=== PATIENT | female | born 1985 | race Caucasian/White ===

== ENCOUNTER 2019-03-30 05:04 | Inpatient (IN) ==
[2019-03-30] MEDS ORDERED: ceFAZolin 2,000 MG in PREMIX 1 EACH IV ONE (05:28)
[2019-03-30] MEDS ORDERED: FAMOTIDINE 20 MG/2 ML VIAL IV PRN (05:28)
[2019-03-30] MEDS ORDERED: CITRIC ACID/SODIUM CITRATE 30 ML UDCUP PO PRN (05:28)
[2019-03-30 05:58] LABS: Basophils % 0.3 % (0.0-0.8); Eosinophils # 0.1 10*3/uL (0.0-0.87); Eosinophils % 0.7 % (0.00-10.9); Hematocrit 30.4 VOL% (35.7-47.0); Hemoglobin 9.1 GM/DL (12.0-16.0); Immature Granulocytes % 0.4 %; Immature Granulocytes Absolute 0.04 #; Lymphocytes # 1.5 10*3/uL (1.4-4.0); Mean Corpuscular HGB Conc 29.9 GM/DL (32-36); Mean Corpuscular Volume 77.7 FL (87-102); Mean Platelet Volume 10.4 FL (9.6-12.0); Neutrophils % 77.6 % (38.7-73.9); Platelet Count 277 T/CUMM (130-400); Red Blood Count 3.91 MC/CUMM (3.8-5.5); Red Cell Distribution Width 14.6 % (9.3-17.3); White Blood Count 9.8 T/CUMM (4-12)
[2019-03-30] MEDS ORDERED: OXYTOCIN/LR 20 UNIT/1,000 ML BAG IV SCH (06:30)
[2019-03-30 06:31] LABS: Albumin 2.5 G/DL (3.4-5.0); Bilirubin,Total 0.4 MG/DL (0.2-1.0); Calcium 8.8 MG/DL (8.5-10.1); Osmolality,Calculated 268.8 MOS/KG (273-304); Total Protein 6.5 G/DL (6.4-8.3)
[2019-03-30] MEDS: LACTATED RINGERS 1,000 ML IV SCH (06:49)
[2019-03-30] MEDS ORDERED: BUPIVACAINE SPINAL 0.75% 2 ML AMP SPINAL ONE (06:49)
[2019-03-30] MEDS ORDERED: BUPIVACAINE 0.5% 50 ML VIAL ONE (06:49)
[2019-03-30] MEDS ORDERED: DEXAMETHASONE 4 MG/1 ML VIAL ONE (07:22)
[2019-03-30] MEDS ORDERED: EPINEPHrine 1 MG/ML VIAL ONE (07:22)
[2019-03-30] MEDS ORDERED: miSOPROStol 200 MCG TABLET ONE (07:23)
[2019-03-30] MEDS ORDERED: METHYLERGONOVINE 0.2 MG/1 ML AMP ONE (07:24)
[2019-03-30] MEDS ORDERED: METHYLENE BLUE 10 ML VIAL IV ONE (08:02)
[2019-03-30 08:05] LABS: Amorphous Crystals,Urine Moderate /HPF (Few); Apearance,Urine CLOUDY (Clear); Bilirubin,Urine Negative (Negative); Blood, Urine Negative (Negative); Glucose,Urine (UA) Negative (Negative); Ketones,Urine 5 mg/dL (Negative); Mucus,Urine Occasional /LPF (Occasional); Nitrite,Urine Negative (Negative); Protein,Urine Negative; Urine Color Yellow (Yellow); Urine Specific Gravity 1.012 (1.001-1.035); Urine Urobilinogen < 2.0 EU/DL (0.2-1.0)
[2019-03-30] MEDS ORDERED: HYDROCORTISONE 2.5% RECTAL CREAM 30 GM TUBE TOP PRN (08:27)
[2019-03-30] MEDS ORDERED: oxyCODONE/ACETAMINOPHEN 5-325 MG TABLET PO PRN (08:27)
[2019-03-30] MEDS ORDERED: BENZOCAINE 20%/MENTHOL 0.5% SPRAY 56 GM CAN TOP PRN (08:27)
[2019-03-30] MEDS ORDERED: ACETAMINOPHEN 325 MG TABLET PO PRN (08:27)
[2019-03-30] MEDS ORDERED: RHO(D) IMMUNE GLOBULIN 300 MCG SYRINGE IM ONE (08:27)
[2019-03-30] MEDS ORDERED: MEASLES/MUMPS/RUBELLA VACCINE 0.5 ML VIAL SUBCUT ONE (08:27)
[2019-03-30] MEDS ORDERED: BISACODYL 10 MG SUPP RECTAL PRN (08:27)
[2019-03-30] MEDS ORDERED: WITCH HAZEL PADS 100/JAR TOP PRN (08:27)
[2019-03-30] MEDS ORDERED: ONDANSETRON 4 MG/2 ML VIAL IV PRN (08:27)
[2019-03-30] MEDS ORDERED: LANOLIN 50% CREAM 0.3 OZ TUBE TOP PRN (08:27)
[2019-03-30] MEDS ORDERED: DIPH/TET/ACEL PERT BOOSTER VACCINE 0.5 ML VIAL IM ONE (08:27)
[2019-03-30] MEDS ORDERED: OXYTOCIN/LR 20 UNIT/1,000 ML BAG IV ONE (08:30)
[2019-03-30] MEDS ORDERED: ACETAMINOPHEN 500 MG TABLET PO PRN (08:30)
[2019-03-30] MEDS ORDERED: PROPOFOL 200 MG/20 ML VIAL IV ONE (09:16)
[2019-03-30] MEDS ORDERED: ONDANSETRON 4 MG/2 ML VIAL ONE (09:17)
[2019-03-30] MEDS ORDERED: MORPHINE 10 MG/10 ML VIAL ONE (09:17)
[2019-03-30] MEDS ORDERED: PHENYLEPHRINE 1 MG/10 ML SYRINGE IV ONE (09:17)
[2019-03-30] MEDS ORDERED: diphenhydrAMINE 50 MG/1 ML VIAL IV PRN (10:09)
[2019-03-30] MEDS ORDERED: diphenhydrAMINE 50 MG/1 ML VIAL IV ONE (12:09)
[2019-03-30] MEDS: ceFAZolin 1,000 MG in SYRINGE 1 EACH IV SCH ×2 (17:30→23:34)
[2019-03-30] MEDS: DOCUSATE SODIUM 100 MG CAPSULE PO SCH (21:06)
[2019-03-31] MEDS: LACTATED RINGERS 1,000 ML IV SCH (02:25)
[2019-03-31 05:36] LABS: Basophils % 0.3 % (0.0-0.8); Eosinophils # 0.1 10*3/uL (0.0-0.87); Eosinophils % 0.6 % (0.00-10.9); Immature Granulocytes % 0.5 %; Immature Granulocytes Absolute 0.06 #; Lymphocytes # 1.9 10*3/uL (1.4-4.0); Lymphocytes % 17.4 % (21.3-54.2); Mean Corpuscular HGB Conc 30.5 GM/DL (32-36); Mean Corpuscular Volume 76.1 FL (87-102); Mean Platelet Volume 10.9 FL (9.6-12.0); Monocytes % 9.5 % (1.7-12.7); Neutrophils % 71.7 % (38.7-73.9); Red Cell Distribution Width 14.5 % (9.3-17.3); White Blood Count 11.1 T/CUMM (4-12)
[2019-03-31 05:38] LABS: Hemoglobin 6.7 GM/DL (12.0-16.0); Platelet Count 210 T/CUMM (130-400); Red Blood Count 2.89 MC/CUMM (3.8-5.5)
[2019-03-31] MEDS: oxyCODONE/ACETAMINOPHEN 5-325 MG TABLET PO PRN ×3 (05:38→22:40)
[2019-03-31] MEDS: IBUPROFEN 800 MG TABLET PO PRN ×2 (05:39→22:42)
[2019-03-31] MEDS ORDERED: FERROUS SULFATE 325 MG TABLET PO SCH (09:00)
[2019-03-31] MEDS: POTASSIUM CHLORIDE 20 MEQ TABLET PO SCH ×2 (09:23→21:25)
[2019-03-31] MEDS: FERROUS SULFATE 325 MG TABLET PO SCH ×3 (09:24→21:24)
[2019-03-31] MEDS: DOCUSATE SODIUM 100 MG CAPSULE PO SCH ×2 (09:24→21:24)
[2019-03-31] MEDS ORDERED: SIMETHICONE CHEW 80 MG TABLET PO PRN (21:07)
[2019-03-31] MEDS ORDERED: MAGNESIUM HYDROXIDE SUSP 30 ML UDCUP PO PRN (21:07)
[2019-04-01 08:04] VITALS: BP 90/55
[2019-04-01] MEDS: DOCUSATE SODIUM 100 MG CAPSULE PO SCH (08:37)
[2019-04-01] MEDS: FERROUS SULFATE 325 MG TABLET PO SCH (08:37)
== END 2019-04-01 11:25 | disposition home or self-care (01) | DRG 788 ==
LOC: N.LD 05:04 → N.OB 14:16
PROVIDERS: ADMIT Specialist; ATTEND Specialist
PROC: LDCSECT (ICD-10-PCS; 2019-03-30 10:00)